=== PATIENT | female | born 1980 | race Caucasian/White ===

== ENCOUNTER 2017-05-07 19:36 | Emergency (ER) | payer MEDICAID ==
[2017-05-07] MEDS ORDERED: DIAZEPAM 2 MG TABLET PO ONE (19:58)
--- NOTE | 2017-05-07 20:00 | ER Document Report ---
ED Medical Screen (RME) - General Chief Complaint: Anxiety Stated Complaint: ANXIETY Time Seen by Provider: 05/07/17 19:58 Mode of Arrival: Ambulatory Information source: Patient TRAVEL OUTSIDE OF THE [place] 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 but it has not helped her with her symptoms at all - Related Data Allergies/Adverse Reactions: No Known Allergies Allergy (Unverified 06/20/16 12:51) Past Medical History Renal/ Medical History: Denies: Hx Peritoneal Dialysis Physical Exam - Vital signs Vitals: Temp Pulse BP Pulse Ox 98.3 F 104 H 139/78 H 99 05/07/17 19:41 05/07/17 19:41 05/07/17 19:41 05/07/17 19:41 Course - Vital Signs Vital signs: Temp Pulse Resp BP Pulse Ox 98.3 F 104 H 139/78 H 99 05/07/17 19:41 05/07/17 19:41 05/07/17 19:41 05/07/17 19:41 Doctor's Discharge - Discharge Instructions: Anxiety ([facility])
[2017-05-07] MEDS ORDERED: HYDROXYZINE PAMOATE 25 MG CAPSULE PO ONE (20:15)
[2017-05-07] MEDS ORDERED: HALOPERIDOL 5 MG TABLET PO ONE (20:15)
--- NOTE | 2017-05-07 21:16 | ER Document Report ---
ED General - General Chief Complaint: Anxiety Stated Complaint: ANXIETY Time Seen by Provider: 05/07/17 19:58 Mode of Arrival: Ambulatory Notes: Patient is a 37-year-old female with past medical history of anxiety and depression who presents after having an acute panic attack. Patient reports that this is after a trigger which reminded her of her daughter's suicide. States she took 1 mg of lorazepam at home and that this did not resolve her panic attack. Does describe this as a sensation of hyperventilation, impending doom, and severe anxiety. She has a history of similar panic attacks in the past although they typically respond to her lorazepam at home. She has not seen her primary doctor regarding today's concerns. TRAVEL OUTSIDE OF THE [place] IN LAST 30 DAYS: No - Related Data Allergies/Adverse Reactions: No Known Allergies Allergy (Verified 05/07/17 20:08) Home Medications: Current Home Medications Lorazepam [Ativan 1 mg Tablet] 1 tab PO PRN PRN 05/07/17 [History] Lurasidone HCl [Latuda 40 mg Tablet] 40 mg PO DAILY 05/07/17 [History] Sertraline HCl [Zoloft] 200 mg PO DAILY 05/07/17 [History] Trazodone HCl 05/07/17 [History] Past Medical History - General Information source: Patient - Social History Smoking Status: Never Smoker Frequency of alcohol use: None Drug Abuse: None Lives with: Spouse/Significant other Family History: Reviewed & Not Pertinent Patient has suicidal ideation: No Patient has homicidal ideation: No Renal/ Medical History: Denies: Hx Peritoneal Dialysis Psychiatric Medical History: Reports: Hx Depression Surgical Hx: Negative - Immunizations Hx Diphtheria, Pertussis, Tetanus Vaccination: Yes Review of Systems - Review of Systems Notes: Constitutional: Negative for fever. HENT: Negative for sore throat. Eyes: Negative for visual changes. Cardiovascular: Negative for chest pain. Respiratory: Negative for shortness of breath. Gastrointestinal: Negative for abdominal pain, vomiting or diarrhea. Genitourinary: Negative for dysuria. Musculoskeletal: Negative for back pain. Skin: Negative for rash. Neurological: Negative for headaches, weakness or numbness. 10 point ROS negative except as marked above and in HPI. Physical Exam - Vital signs Vitals: Temp Pulse BP Pulse Ox 98.3 F 104 H 139/78 H 99 05/07/17 19:41 05/07/17 19:41 05/07/17 19:41 05/07/17 19:41 Interpretation: Tachycardic Notes: PHYSICAL EXAMINATION: GENERAL: Well-appearing, well-nourished and in no acute distress. HEAD: Atraumatic, normocephalic. EYES: Pupils equal round and reactive to light, extraocular movements intact, sclera anicteric, conjunctiva are normal. ENT: nares patent, oropharynx clear without exudates. Moist mucous membranes. NECK: Normal range of motion, supple without lymphadenopathy LUNGS: Breath sounds clear to auscultation bilaterally and equal. No wheezes rales or rhonchi. HEART: Regular rate and rhythm without murmurs ABDOMEN: Soft, nontender, normoactive bowel sounds. No guarding, no rebound. No masses appreciated. EXTREMITIES: Normal range of motion, no pitting or edema. No cyanosis. NEUROLOGICAL: No focal neurological deficits. Moves all extremities spontaneously and on command. PSYCH: Slightly anxious SKIN: Warm, Dry, normal turgor, no rashes or lesions noted. Course - Re-evaluation Re-evalutation: 05/07/17 21:15 Patient presents with history most consistent with an acute panic attack. The patient admits that these are symptoms identical to prior occasions of panic. There was a clear trigger for tonight's episode. Symptoms did resolve after receiving medical therapy here in the emergency department. Vitals otherwise within normal limits. I do not suspect an acute pulmonary embolus, ACS, pneumothorax, or any other acute left threatening pathology based on history and exam. I do not believe any labs or imaging are indicated at this time. At this time will discharge with return precautions and follow-up recommendations. Verbal discharge instructions given a the bedside and opportunity for questions given. Medication warnings reviewed. Patient is in agreement with this plan and has verbalized understanding of return precautions and the need for primary care follow-up in the next 24-72 hours. - Vital Signs Vital signs: Temp Pulse Resp BP Pulse Ox 98.2 F 72 18 103/62 98 05/07/17 21:35 05/07/17 21:35 05/07/17 21:35 05/07/17 21:35 05/07/17 21:35 Discharge - Discharge Clinical Impression: Panic attack Condition: Good Disposition: HOME, SELF-CARE Instructions: Anxiety ([facility]) Additional Instructions: You were seen today for a panic attack. Please return if you develop recurrance of your symptoms, thoughts of wanting to harm yourself, or any other symptoms that are concerning to you. Follow-up with your primary doctor or mental health provider regarding today's ED visit. Referrals: CHEYANNE DELUNA PA-C [Primary Care Provider] - Follow up as needed
[2017-05-07 21:36] VITALS: BP 103/62
== END 2017-05-07 21:35 | disposition home or self-care (01) ==
LOC: ER 19:36
DX: F41.0 Panic disorder [episodic paroxysmal anxiety] (principal)
CPT/HCPCS: 99283; J3490 ×3